=== PATIENT | male | born 1970 | race Caucasian/White ===

== ENCOUNTER → 2023-10-24 09:52 | Outpatient (CLI) | payer OTHER, SELFPAY ==
--- NOTE | 2023-10-24 10:11 | DI.RAD.S_ITS ---
PROCEDURE: XR LUMBAR SPINE 2-3V INDICATIONS: BACK PAIN TECHNIQUE: 3 views of the lumbar spine were acquired. COMPARISON: None. FINDINGS: Bones: Transitional lumbosacral anatomy with 5 nmo-reg-vwwffbr lumbar type vertebral bodies. The first wsk-wui-azptzfs lumbar type vertebral body is designated as T12 with possible aplastic 12th ribs. There is normal bony alignment. No vertebral body compression fractures. Mild to moderate multilevel degenerative changes with osteophytosis, disc height loss and facet arthropathy, notably at L4-L5 and L5-S1. There is osseous neural foraminal narrowing at L3-L4, L4-L5 and L5-S1. No suspicious bony lesions. Soft tissues: Overlying bowel gas pattern is normal. No suspicious soft tissue calcifications. IMPRESSION: 1. Transitional lumbosacral anatomy with 6 ezu-cef-jdmnqkk lumbar type vertebral bodies. The first ptw-ztx-rdpnfdh lumbar type vertebral body is designated as T12 with possible aplastic 12th ribs. If patient requires surgical instrumentation in the future, a careful analysis of the vertebral levels should be performed. 2. Yltc-rp-zglmzedh multilevel degenerative changes, notably at L4-5 and L5-S1. Dictated by: Bravo Sainz M.D. on 10/24/2023 at 15:44 Approved by: Bravo Sainz M.D. on 10/24/2023 at 16:07
--- NOTE | 2023-10-24 10:11 | DI.RAD.S_ITS ---
PROCEDURE: XR CERVICAL SPINE 2V OR 3V INDICATIONS: BACK PAIN TECHNIQUE: 3 view(s) of the cervical spine were acquired. COMPARISON: None. FINDINGS: Bones: No fractures or dislocations to the C7 level. The lateral masses of C1 appear intact on the odontoid view. Straightening of the normal cervical lordosis. Mild to moderate multilevel degenerative changes with osteophytosis, disc height loss and facet/uncal arthropathy, worse at C5-C6 and C6-C7. No suspicious bony lesions. Soft tissues: No prevertebral soft tissue swelling. IMPRESSION: 1. No displaced fracture or traumatic subluxation. 2. Multilevel degenerative changes with straightening of the normal cervical lordosis, worse at C5-C6 and C6-C7. Dictated by: Bravo Sainz M.D. on 10/24/2023 at 11:57 Approved by: Bravo Sainz M.D. on 10/24/2023 at 11:58
== END ==
PROVIDERS: Referring Provider Internal Medicine Cardiovascular Disease; Visit Provider Internal Medicine Cardiovascular Disease
DX: M47.812 Spondylosis without myelopathy or radiculopathy, cervical region (principal); M47.816 Spondylosis without myelopathy or radiculopathy, lumbar region; M47.817 Spondylosis without myelopathy or radiculopathy, lumbosacral region; M54.50 Low back pain, unspecified; M54.2 Cervicalgia
CPT/HCPCS: 72040; 72100